=== PATIENT | female | born 1950 | race Caucasian/White ===

== ENCOUNTER 2019-10-09 13:40 | Outpatient (CLI) | payer MEDICARE, OTHER | END 2019-10-09 23:59 | disposition home or self-care (01) | LOC: WOU 13:40 | PROVIDERS: ATTEND Podiatrist Foot & Ankle Surgery | DX: E11.621 Type 2 diabetes mellitus with foot ulcer (principal); L97.522 Non-pressure chronic ulcer of other part of left foot with fat layer exposed; E11.51 Type 2 diabetes mellitus with diabetic peripheral angiopathy without gangrene; E11.69 Type 2 diabetes mellitus with other specified complication; E11.40 Type 2 diabetes mellitus with diabetic neuropathy, unspecified; M86.172 Other acute osteomyelitis, left ankle and foot; Z79.4 Long term (current) use of insulin; R26.2 Difficulty in walking, not elsewhere classified; I10 Essential (primary) hypertension; I48.91 Unspecified atrial fibrillation; Z79.01 Long term (current) use of anticoagulants | CPT/HCPCS: 11042 ==

== ENCOUNTER 2019-10-26 13:20 | Outpatient (CLI) | payer MEDICARE, OTHER | END 2019-10-26 23:59 | disposition home or self-care (01) | LOC: WOU 13:20 | PROVIDERS: ATTEND Podiatrist Foot & Ankle Surgery | DX: E11.621 Type 2 diabetes mellitus with foot ulcer (principal); L97.522 Non-pressure chronic ulcer of other part of left foot with fat layer exposed; E11.40 Type 2 diabetes mellitus with diabetic neuropathy, unspecified; E11.51 Type 2 diabetes mellitus with diabetic peripheral angiopathy without gangrene; E11.69 Type 2 diabetes mellitus with other specified complication; M86.172 Other acute osteomyelitis, left ankle and foot; Z79.4 Long term (current) use of insulin; R26.2 Difficulty in walking, not elsewhere classified; I10 Essential (primary) hypertension; Z79.01 Long term (current) use of anticoagulants | CPT/HCPCS: 11042 ==

== ENCOUNTER 2019-11-13 17:44 | Inpatient (IN) | payer MEDICARE, OTHER ==
[~2019-11-13] VITALS: Ht 165.1 cm; Wt 104.3 kg
[2019-11-13] MEDS ORDERED: IV NS 0.9% 1,000 ML BAG IV ONE (18:00)
--- NOTE | 2019-11-13 18:07 | NUR ---
BIBDAUGTHER FROM HOME. TO ER BED 7. AAOX4. BREATHING RAPID AND REPORTS FEELING SOB. AMBULATORY. BROUGHT IN BECAUSE HEMOGLOBIN IS 5.3. PT PLACED ON 02 VIA NC @ 2 LPM. PT ALREADY HAVE A PICC WITH 2 LUMEN. BLOOD DRAWN AND GIVEN TO SUPERVISOR WINTER AT BEDSIDE. WAS AT BEDSIDE FOR EVAL. ORDERS RECEIVED NOTED AND CARRIED OUT.
[2019-11-13 18:09] LABS: BASOPHILS # (AUTO) 0.3 /CMM (0.0-0.2); EOSINOPHILS % (AUTO) 3.4 % (0.0-6.0); LYMPHOCYTES # (AUTO) 1.4 /CMM (0.8-4.8); LYMPHOCYTES % (AUTO) 15.2 % (20.0-44.0); MEAN CORPUSCULAR HGB CONC 33 g/dl (31.0-36.0); MEAN CORPUSCULAR VOLUME 84 fL (82-100); MONOCYTES % (AUTO) 11.3 % (2.0-12.0); NEUTROPHILS % (AUTO) 67.1 % (43.0-81.0); PLATELET COUNT (AUTO) 209 /CMM (150-450); RED BLOOD CELL COUNT(AUTO) 2.19 MIL/uL (4.0-5.2); WHITE BLOOD COUNT (AUTO) 8.9 K/uL (4.3-11.0)
[2019-11-13 18:11] LABS: HEMATOCRIT 19 % (33-45); HEMOGLOBIN 6.2 g/dL (11.5-14.8)
[2019-11-13] MEDS ORDERED: CILO50TA PO (18:14)
[2019-11-13] MEDS ORDERED: DEXL60CA3 PO (18:14)
[2019-11-13] MEDS ORDERED: BUDE10.22 INH (18:14)
[2019-11-13] MEDS ORDERED: ASPI-1152 PO (18:14)
[2019-11-13] MEDS ORDERED: LIPA1CAP15 PO (18:14)
[2019-11-13] MEDS ORDERED: METO25TA20 PO (18:14)
[2019-11-13] MEDS ORDERED: LISI-607 PO (18:14)
[2019-11-13] MEDS ORDERED: INSU100I4 (18:14)
[2019-11-13] MEDS ORDERED: RANO10004 PO (18:14)
[2019-11-13] MEDS ORDERED: ALPR2TAB7 PO (18:14)
[2019-11-13] MEDS ORDERED: RIVA10TA PO (18:14)
[2019-11-13] MEDS ORDERED: DICL75TA5 PO (18:14)
[2019-11-13] MEDS ORDERED: DILT30TA14 PO (18:14)
[2019-11-13] MEDS ORDERED: SITA100T PO (18:14)
[2019-11-13] MEDS ORDERED: PREG150C46 PO (18:14)
[2019-11-13] MEDS ORDERED: LOSA1TAB39 PO (18:14)
[2019-11-13] MEDS ORDERED: FERR325T29 PO (18:14)
[2019-11-13] MEDS ORDERED: FURO20TA4 PO (18:14)
[2019-11-13] MEDS ORDERED: ROSU40TA23 PO (18:14)
[2019-11-13] MEDS ORDERED: INSU100I19 SUBCUT (18:14)
[2019-11-13 18:19] LABS: CALCIUM, SERUM 8.6 mg/dL (8.5-10.1); CARBON DIOXIDE 24 mmol/L (21-32); CHLORIDE 104 mmol/L (98-107); CREATININE 1.8 mg/dL (0.6-1.3); GLUCOSE 293 mg/dL (74-106); POTASSIUM 3.7 mmol/L (3.5-5.1); SODIUM SERUM 139 mmol/L (136-145); UREA NITROGEN, BLOOD 45 mg/dL (7-18)
[2019-11-13 18:25] LABS: ALANINE AMINOTRANSFERASE 29 U/L (12-78); ALKALINE PHOSPHATASE 92 U/L (46-116); ASPARTATE AMINOTRANSFERASE 19 U/L (15-37); BILIRUBIN,DIRECT 0.1 mg/dL (0.0-0.2); BILIRUBIN,TOTAL 0.5 mg/dL (0.2-1.0); LIPASE 392 U/L (73-393); TOTAL PROTEIN, SERUM 7.1 g/dL (6.4-8.2)
--- NOTE | 2019-11-13 18:25 | NUR ---
CONSENT FOR BLOOD TRANSFUSION OBTAINED FROM PT.
[2019-11-13] MEDS ORDERED: PANTOPRAZOLE 40 MG VIAL ONE ×2 (18:26→18:31)
[2019-11-13] MEDS ORDERED: PANTOPRAZOLE 80 MG in IV NS 0.9% 500 ML IV ONE (18:30)
[2019-11-13 19:03] LABS: EOSINOPHILS % (MANUAL) 4 % (0-4); LYMPHOCYTES % (MANUAL) 14 % (16-48); MONOCYTES % (MANUAL) 10 % (0-11.0); NEUTROPHILS % (MANUAL) 72 (42-76)
--- NOTE | 2019-11-13 19:57 | NUR ---
BLOOD TRANSFUSION STARTED. VERIFIED PRODUCT W/ MIHAI COOK
--- NOTE | 2019-11-13 20:06 | NUR ---
REPORT GIVEN TO MIHAI FUNG FOR ERIKA.
--- NOTE | 2019-11-13 20:14 | NUR ---
NO NOTED ADVERSE REACTION FROM BLOOD TRANSFUSSION. VSS
--- NOTE | 2019-11-13 20:15 | NUR ---
LEGAL NURSE CONSULTANT ADMITTING NOTES RECEIVED PT FROM ER VIA QUIN IN STABLE CONDITION. PT A/O X3 AND ABLE TO MAKE NEEDS KNOWN. PT INFUSING 1 UNIT PRBC. RESPIRATIONS EVEN AND UNLABORED WITH NO S/S OF ACUTE DISTRESS OR SOB NOTED. NO COMPLAINTS OF PAIN AT THIS TIME. ORIENTED PT TO ROOM AND STAFF. SAFETY MEASURES IN PLACE WITH BED IN LOWEST LOCKED POSITION WITH SIDE RAILS UP X2. CALL LIGHT WITHIN REACH. WILL CONTINUE TO MONITOR.
--- NOTE | 2019-11-13 20:30 | NUR ---
INSTRUCTOR PHYSICAL NOTES PT REFUSED PHOTOS/ASSESSMENT OF LEFT TOE WOUND. WILL CONTINUE TO MONITOR.
--- NOTE | 2019-11-13 20:33 | NUR ---
PT TRANSPORTED TO UNIT ON GURNEY WITH EMT AND RN AT BEDSIDE W/ ACLS PROTOCOL. NAD NOTED DURING TRANSPORT. PT AMBULATED ON STEADY FROM GURNEY TO BED.
[2019-11-13 21:00] VITALS: BP 131/77
[2019-11-13] MEDS ORDERED: ACETAMINOPHEN 325 MG TABLET PO PRN (22:00)
[2019-11-13] MEDS ORDERED: Z GUARD REMEDY 2 OZ OINT TP PRN (22:00)
[2019-11-13] MEDS ORDERED: INSULIN DETEMIR 100 UNIT/ML CARTRIDGE SQ SCH (22:00)
[2019-11-13] MEDS ORDERED: ONDANSETRON HCL/PF 4 MG/2 ML VIAL IVP PRN (22:00)
[2019-11-13] MEDS: ATORVASTATIN 40 MG TABLET PO SCH (23:19)
[2019-11-13 23:55] VITALS: BP 120/58
[2019-11-14] VITALS (10 sets, daily range): BP systolic 94–145; BP diastolic 42–83
[2019-11-14 04:21] LABS: BASOPHILS # (AUTO) 0.1 /CMM (0.0-0.2); BASOPHILS % (AUTO) 0.8 % (0.0-2.0); EOSINOPHILS % (AUTO) 4.1 % (0.0-6.0); HEMATOCRIT 24 % (33-45); HEMOGLOBIN 7.9 g/dL (11.5-14.8); LYMPHOCYTES # (AUTO) 1.7 /CMM (0.8-4.8); LYMPHOCYTES % (AUTO) 17.2 % (20.0-44.0); MEAN CORPUSCULAR HGB CONC 33 g/dl (31.0-36.0); MEAN CORPUSCULAR VOLUME 86 fL (82-100); MONOCYTES # (AUTO) 0.9 /CMM (0.1-1.30); MONOCYTES % (AUTO) 9.7 % (2.0-12.0); NEUTROPHILS # (AUTO) 6.7 /CMM (1.8-8.9); NEUTROPHILS % (AUTO) 68.2 % (43.0-81.0); PLATELET COUNT (AUTO) 207 /CMM (150-450); RED BLOOD CELL COUNT(AUTO) 2.79 MIL/uL (4.0-5.2); WHITE BLOOD COUNT (AUTO) 9.8 K/uL (4.3-11.0)
[2019-11-14 04:37] LABS: ALANINE AMINOTRANSFERASE 24 U/L (12-78); ALBUMIN 2.8 g/dL (3.4-5.0); ALKALINE PHOSPHATASE 79 U/L (46-116); ASPARTATE AMINOTRANSFERASE 19 U/L (15-37); BILIRUBIN,TOTAL 1.4 mg/dL (0.2-1.0); CALCIUM, SERUM 8.3 mg/dL (8.5-10.1); CARBON DIOXIDE 27 mmol/L (21-32); CHLORIDE 105 mmol/L (98-107); CREATININE 1.9 mg/dL (0.6-1.3); GLUCOSE 337 mg/dL (74-106); IRON, SERUM 100 ug/dl (50-175); MAGNESIUM 1.9 mg/dL (1.8-2.4); PHOSPHORUS 3.6 mg/dL (2.5-4.9); POTASSIUM 3.9 mmol/L (3.5-5.1); SODIUM SERUM 141 mmol/L (136-145); TOTAL IRON BINDING CAPACITY 304 ug/dl (250-450); TOTAL PROTEIN, SERUM 6.6 g/dL (6.4-8.2); UREA NITROGEN, BLOOD 46 mg/dL (7-18)
[2019-11-14 04:45] LABS: CHOLESTEROL 131 mg/dL (<200); HDL CHOLESTEROL 29 mg/dL (40-60); LDL 78 mg/dL (0-99); THYROID STIMULATING HORMONE 2.909 uIU/mL (0.358-3.74); TRIGLYCERIDES 226 mg/dL (30-150)
[2019-11-14] MEDS ORDERED: INSULIN GLARGINE, 100 UNIT/ML CARTRIDGE SQ SCH (07:13)
--- NOTE | 2019-11-14 07:19 | NUR ---
COTTON PRESSER NOTES PT IN BED AWAKE AND ABLE TO MAKE NEEDS KNOWN. PT A/O X3 AND ABLE TO MAKE NEEDS KNOWN. RESPIRATIONS EVEN AND UNLABORED WITH NO S/S OF ACUTE DISTRESS OR SOB NOTED THROUGHOUT SHIFT. NO COMPLAINTS OF PAIN AT THIS TIME. SAFETY MEASURES IN PLACE WITH BED IN LOWEST LOCKED POSITION WITH SIDE RAILS UP X2. CALL LIGHT WITHIN REACH. WILL ENDORSE TO ONCOMING NURSE FOR ERIKA.
[2019-11-14] MEDS: INSULIN LISPRO/ASPART 100 UNIT/ML CARTRIDGE SQ SCH ×3 (08:22→17:54)
[2019-11-14] MEDS: LINAGLIPTIN 5 MG TABLET PO SCH (08:30)
--- NOTE | 2019-11-14 08:30 | NUR ---
WOUND CARE CONSULT: PT FOLLOWED BY DR ALMAGUER FOR LEFT 4TH TOE WOUND, PRESENT ON ADMISSION. DR ALMAGUER NOTIFIED OF PT ADMISSION. DEFER TO DPM FOR TREATMENT PLAN OF TOE WOUND. PT NOTED TO HAVE RASH TO ABDOMINAL AND GROIN FOLDS, PRESENT ON ADMISSION. RECOMMENDATIONS MADE FOR SKIN CARE AND PROTECTION. DISCUSSED WITH NURSING STAFF. WILL SEE PRN. WILKINS IN AGREEMENT WITH PLAN OF CARE. CURRENT KENA SCORE IS 20. Addendum: 11/14/19 at 0832 by JOHANA WHITE [id number] Amended: Links added.
[2019-11-14] MEDS ORDERED: LOSARTAN POTASSIUM 50 MG TABLET PO SCH (09:00)
[2019-11-14] MEDS ORDERED: LISINOPRIL (5MG) 5 MG TABLET PO SCH (09:00)
[2019-11-14] MEDS: PANTOPRAZOLE 40 MG TABLET.DR PO SCH ×2 (09:00→21:57)
[2019-11-14] MEDS: CILOSTAZOL 100 MG TABLET PO SCH ×3 (09:00→16:33)
[2019-11-14] MEDS ORDERED: DEXTROSE 50%-WATER 50 ML DISP.SYRIN IV PRN (09:00)
[2019-11-14] MEDS: FUROSEMIDE 20 MG TABLET PO SCH ×2 (11:08→16:31)
[2019-11-14] MEDS: PREGABALIN 25 MG CAPSULE PO SCH (11:08)
[2019-11-14] MEDS: CLOTRIMAZOLE 1% 15 GM TUBE TP SCH ×2 (11:10→17:58)
[2019-11-14] MEDS: FLUTICASONE/VILANTEROL 1 EACH BLST.W.DEV IH SCH (11:10)
[2019-11-14] MEDS: ASPIRIN EC 81 MG TABLET.DR PO SCH (11:12)
[2019-11-14] MEDS: DILTIAZEM HCL 30 MG TABLET PO SCH ×2 (11:12→16:32)
[2019-11-14] MEDS: FERROUS SULFATE (325 MG) 325 MG/TAB TABLET PO SCH ×3 (11:13→17:57)
[2019-11-14] MEDS: METOPROLOL TARTRATE 25 MG TABLET PO SCH ×2 (11:13→16:31)
[2019-11-14] MEDS: LIPASE/PROTEASE/AMYLASE 1 EACH CAPSULE.DR PO SCH ×3 (11:14→18:02)
[2019-11-14] MEDS: ALPRAZOLAM 1 MG TABLET PO SCH ×2 (11:15→16:32)
[2019-11-14] MEDS ORDERED: BLOOD SUGAR DIAGNOSTIC 1 EACH STRIP IN SCH (12:00)
[2019-11-14] MEDS: HYDROCHLOROTHIAZIDE 25 MG TABLET PO SCH (13:00)
[2019-11-14] MEDS: BLOOD SUGAR DIAGNOSTIC 1 EACH STRIP VI SCH ×3 (13:05→21:58)
[2019-11-14] MEDS: INSULIN REGULAR, HUMAN 100 UNIT/ML 3 ML VIAL SQ PRN ×2 (13:12→17:53)
--- NOTE | 2019-11-14 16:33 | NUR ---
hilaria alcala called .pletal held today due to low blood count.xanax held in afternoon due to sedation.few bp meds held due to hypotension.
--- NOTE | 2019-11-14 19:57 | NUR ---
POWER PLANT ASSISTANT NOTES PATIENT IN BED, AWAKE, ALERT AND ORIENTED X 3. BREATHING EVEN AND UNLABORED ON 2L, SHOWS NO SIGNS OF ACUTE RESPIRATORY DISTRESS, NO ACUTE PAIN. TELE MONITOR SR 65. PICC JAX ITS CLEAN DRY AND INTACT. SHOWS NO SIGNS OF INFILTRATION NO REDNESS. SAFETY PRECAUTIONS IN PLACE. BED IN LOWEST POSITION, LOCKED, AND CALL LIGHT KEPT WITHIN REACH. WILL CONTINUE TO MONITOR.
[2019-11-14] MEDS: ATORVASTATIN 40 MG TABLET PO SCH (21:57)
[2019-11-14] MEDS: *INSULIN REGULAR(HUMULIN R)HUM 100 UNIT/ML VIAL SQ PRN (22:17)
[2019-11-15] VITALS: BP 114/43
[2019-11-15 04:00] VITALS: BP 118/49
--- NOTE | 2019-11-15 06:50 | NUR ---
ASSEMBLER FLUORESCENT LIGHTS NOTES PATIENT IN BED, ASLEEP, ALERT AND ORIENTED X 3. BREATHING EVEN AND UNLABORED ON 2L, SHOWS NO SIGNS OF ACUTE RESPIRATORY DISTRESS, NO ACUTE PAIN. TELE MONITOR SR 65. PICC JAX ITS CLEAN DRY AND INTACT. SHOWS NO SIGNS OF INFILTRATION NO REDNESS. SAFETY PRECAUTIONS IN PLACE. BED IN LOWEST POSITION, LOCKED, AND CALL LIGHT KEPT WITHIN REACH. WILL CONTINUE TO MONITOR.
--- NOTE | 2019-11-15 06:51 | NUR ---
LIEUTENANT SHIFT SUPERVISOR NOTES ALL DUE MEDICATIONS WERE GIVEN. WILL ENDORSE TO MORNING SHIFT.
[2019-11-15] MEDS: BLOOD SUGAR DIAGNOSTIC 1 EACH STRIP VI SCH ×3 (07:04→18:10)
[2019-11-15 07:25] LABS: CREATINE KINASE, TOTAL 51 U/L (26-192)
[2019-11-15 07:28] LABS: BASOPHILS % (AUTO) 0.5 % (0.0-2.0); EOSINOPHILS % (AUTO) 5.7 % (0.0-6.0); HEMATOCRIT 24 % (33-45); HEMOGLOBIN 7.8 g/dL (11.5-14.8); LYMPHOCYTES # (AUTO) 1.6 /CMM (0.8-4.8); LYMPHOCYTES % (AUTO) 18.4 % (20.0-44.0); MEAN CORPUSCULAR HGB CONC 33 g/dl (31.0-36.0); MEAN CORPUSCULAR VOLUME 87 fL (82-100); MONOCYTES % (AUTO) 11.7 % (2.0-12.0); NEUTROPHILS # (AUTO) 5.6 /CMM (1.8-8.9); NEUTROPHILS % (AUTO) 63.7 % (43.0-81.0); PLATELET COUNT (AUTO) 191 /CMM (150-450); RED BLOOD CELL COUNT(AUTO) 2.75 MIL/uL (4.0-5.2); WHITE BLOOD COUNT (AUTO) 8.9 K/uL (4.3-11.0)
[2019-11-15 07:31] LABS: ALANINE AMINOTRANSFERASE 25 U/L (12-78); ALBUMIN 2.7 g/dL (3.4-5.0); ALKALINE PHOSPHATASE 75 U/L (46-116); ASPARTATE AMINOTRANSFERASE 22 U/L (15-37); BILIRUBIN,TOTAL 0.7 mg/dL (0.2-1.0); CALCIUM, SERUM 8.3 mg/dL (8.5-10.1); CARBON DIOXIDE 27 mmol/L (21-32); CHLORIDE 107 mmol/L (98-107); CREATININE 1.8 mg/dL (0.6-1.3); GLUCOSE 214 mg/dL (74-106); POTASSIUM 4.1 mmol/L (3.5-5.1); SODIUM SERUM 141 mmol/L (136-145); TOTAL PROTEIN, SERUM 6.4 g/dL (6.4-8.2); UREA NITROGEN, BLOOD 42 mg/dL (7-18)
[2019-11-15 08:00] VITALS: BP 134/57
[2019-11-15] MEDS: LIPASE/PROTEASE/AMYLASE 1 EACH CAPSULE.DR PO SCH ×3 (08:00→18:00)
[2019-11-15] MEDS: DILTIAZEM HCL 30 MG TABLET PO SCH ×2 (09:00→17:00)
[2019-11-15] MEDS: CILOSTAZOL 100 MG TABLET PO SCH ×2 (09:00→17:00)
[2019-11-15] MEDS: FLUTICASONE/VILANTEROL 1 EACH BLST.W.DEV IH SCH ×2 (09:00→10:46)
[2019-11-15] MEDS: FERROUS SULFATE (325 MG) 325 MG/TAB TABLET PO SCH ×3 (09:00→17:00)
[2019-11-15] MEDS: CLOTRIMAZOLE 1% 15 GM TUBE TP SCH ×2 (09:00→17:10)
[2019-11-15] MEDS: METOPROLOL TARTRATE 25 MG TABLET PO SCH ×2 (09:00→17:00)
[2019-11-15] MEDS: ALPRAZOLAM 1 MG TABLET PO SCH ×2 (09:00→17:00)
[2019-11-15] MEDS: INSULIN LISPRO/ASPART 100 UNIT/ML CARTRIDGE SQ SCH ×3 (10:46→17:30)
[2019-11-15] MEDS: HYDROCHLOROTHIAZIDE 25 MG TABLET PO SCH (13:20)
[2019-11-15] MEDS: *INSULIN REGULAR(HUMULIN R)HUM 100 UNIT/ML VIAL SQ PRN (13:46)
[2019-11-15] MEDS: ASPIRIN EC 81 MG TABLET.DR PO SCH (14:05)
[2019-11-15] MEDS: LINAGLIPTIN 5 MG TABLET PO SCH (14:05)
[2019-11-15] MEDS: PREGABALIN 25 MG CAPSULE PO SCH (14:05)
[2019-11-15] MEDS: PANTOPRAZOLE 40 MG TABLET.DR PO SCH (14:05)
--- NOTE | 2019-11-15 15:23 | NUR ---
PT. REFUSING DISCHARGE PHOTOS.
[2019-11-15 17:00] VITALS: BP 131/61
--- NOTE | 2019-11-15 18:10 | NUR ---
all papers signed.including belonging sheet. hep lock out. taken to lobby via w/c accompanied by recreational vehicle resort manager.aware to make md appt. as soon as possible.
[2019-11-16 09:06] LABS: *SPE A/G RATIO 0.8 (0.7-1.7); *SPE ALBUMIN 2.7 g/dL (2.9-4.4); *SPE ALPHA-1-GLOBULIN 0.3 g/dL (0.0-0.4); *SPE ALPHA-2-GLOBULIN 0.8 g/dL (0.4-1.0); *SPE GLOBULIN, TOTAL 3.3 g/dL (2.2-3.9); *SPE M-SPIKE 0.7 g/dL (Not Observed); *SPEGAMMA GLOBULIN 1.3 g/dL (0.4-1.8)
== END 2019-11-15 18:15 | disposition home health service (06) | DRG 638 ==
LOC: ER 17:48 → TELE 19:54 → MED 11-15 12:22
PROVIDERS: ADMIT Nurse Practitioner Acute Care
PROC: 30233N1 Transfusion of Nonautologous Red Blood Cells into Peripheral Vein, Percutaneous Approach (ICD-10-PCS; principal; 2019-11-13)
PROC: 02HV33Z Insertion of Infusion Device into Superior Vena Cava, Percutaneous Approach (ICD-10-PCS; 2019-11-14)
PROC: B548ZZA Ultrasonography of Superior Vena Cava, Guidance (ICD-10-PCS; 2019-11-14)
DX: E11.69 Type 2 diabetes mellitus with other specified complication (principal); M86.9 Osteomyelitis, unspecified; D68.59 Other primary thrombophilia; D62 Acute posthemorrhagic anemia; N17.0 Acute kidney failure with tubular necrosis; D50.9 Iron deficiency anemia, unspecified; K21.9 Gastro-esophageal reflux disease without esophagitis; I48.91 Unspecified atrial fibrillation; E11.40 Type 2 diabetes mellitus with diabetic neuropathy, unspecified; Z79.01 Long term (current) use of anticoagulants; Z79.4 Long term (current) use of insulin; Z79.84 Long term (current) use of oral hypoglycemic drugs; Z79.82 Long term (current) use of aspirin; Z79.899 Other long term (current) drug therapy; F41.9 Anxiety disorder, unspecified; I10 Essential (primary) hypertension; E78.5 Hyperlipidemia, unspecified; E66.9 Obesity, unspecified; R60.9 Edema, unspecified; T50.2X5A Adverse effect of carbonic-anhydrase inhibitors, benzothiadiazides and other diuretics, initial encounter; Y92.009 Unspecified place in unspecified non-institutional (private) residence as the place of occurrence of the external cause
CPT/HCPCS: 36415; 71045-TC; 76770-TC; 80048-TC; 80053-TC; 80061-TC; 80076-TC; 82550-TC; 82962-TC; 83540-TC; 83690-TC; 83735-TC; 83970; 84100-TC; 84155; 84165; 84443-TC; 84484-TC; 85025-TC; 85730-TC; 86850-TC; 86921-TC; 87081-TC; C9113; G0378; J1815; J7030; J7040; P9016-BL